=== PATIENT | female | born 2000 | race American Indian/Alaskan Native ===

== ENCOUNTER 2021-10-27 10:55 | Emergency (ER) | payer SELFPAY ==
[2021-10-27] MEDS ORDERED: LIDOCAINE-MPF (1%) 10 MG/1 ML VIAL 5 ML INFILTRATI ONE (12:12)
--- NOTE | 2021-10-27 12:21 | Emergency Department Report ---
ED Female HPI - General Chief complaint: Urogenital-Female Stated complaint: BARTHOLIN CYST Source: patient Mode of arrival: Ambulatory Limitations: No Limitations - History of Present Illness Initial comments: 21-year-old female presents to the ED complaining of right labia pain after having rough sex x3 days ago. She states that she was evaluated at [facility] times x 2 days ago and was given Flagyl gel for bacterial vaginosis. Patient states that she has a history of having Bartholin cyst in the past. States that she never had to have an incision and drained they normally will resolve . Patient states that she has unprotected sex. Denies any abd pain fever, chills or nausea or vomiting at present. Denies any abdominal pain at present. No acute distress noted no ill appearance no. She states taking Tylenol with mild relief. Onset/Timin -: days(s) Location: labia Severity scale (0 -10): 3 Worsens with: none Are you Now?: No Last Menstrual Period: 10/17/21 EDC: 07/24/22 Associated Symptoms: denies other symptoms - Related Data Sexually active: Yes Previous Rx's Medication Instructions Recorded Last Taken Type DOXYCYCLINE Hyclate [Vibramycin 100 mg PO Q12HR 7 Days #14 capsule 10/27/21 Unknown Rx CAP] Allergies Allergy/AdvReac Type Severity Reaction Status Date / Time No Known Allergies Allergy Unverified 10/27/21 11:21 ED Review of Systems ROS: Stated complaint: BARTHOLIN CYST Other details as noted in HPI Constitutional: denies: chills, fever Eyes: denies: eye pain, eye discharge, vision change ENT: denies: ear pain, throat pain Respiratory: denies: cough, shortness of breath, wheezing Cardiovascular: denies: chest pain, palpitations Endocrine: no symptoms reported Gastrointestinal: denies: abdominal pain, nausea, diarrhea Genitourinary: denies: urgency, dysuria, discharge Musculoskeletal: denies: back pain, joint swelling, arthralgia Skin: denies: rash, lesions Neurological: denies: headache, weakness, paresthesias Psychiatric: denies: anxiety, depression Hematological/Lymphatic: denies: easy bleeding, easy bruising ED Past Medical Hx - Past Medical History Previous Medical History?: Yes Additional medical history: BARTHOLIN CYST - Surgical History Past Surgical History?: Yes Additional Surgical History: UMBILICAL HERNIA REPAIR @ [facility]NG AGE - Medications Home Medications: Home Medications Medication Instructions Recorded Confirmed Last Taken Type DOXYCYCLINE Hyclate [Vibramycin 100 mg PO Q12HR 7 Days #14 capsule 10/27/21 Unknown Rx CAP] ED Physical Exam - General Limitations: No Limitations General appearance: alert, in no apparent distress - Head Head exam: Present: atraumatic, normocephalic - Eye Eye exam: Present: normal appearance - ENT ENT exam: Present: mucous membranes moist - Neck Neck exam: Present: normal inspection - Respiratory Respiratory exam: Present: normal lung sounds bilaterally. Absent: respiratory distress - Cardiovascular Cardiovascular Exam: Present: regular rate, normal rhythm. Absent: systolic murmur, diastolic murmur, rubs, gallop - GI/Abdominal GI/Abdominal exam: Present: soft, normal bowel sounds - External exam: Present: swelling (right labia ). Absent: lesions, lacerations - Extremities Exam Extremities exam: Present: normal inspection - Back Exam Back exam: Present: normal inspection - Neurological Exam Neurological exam: Present: alert, oriented X3 - Psychiatric Psychiatric exam: Present: normal affect, normal mood - Skin Skin exam: Present: warm, dry, intact, normal color. Absent: rash ED Course Vital Signs 10/27/21 11:23 Temperature 98.4 F Pulse Rate 77 Respiratory 16 Rate Blood Pressure 115/82 O2 Sat by Pulse 97 Oximetry ED Medical Decision Making - Medical Decision Making 21-year-old female presents to the ED complaining of right labia pain after having rough sex x3 days ago. She states that she was evaluated at [facility] times x 2 days ago and was given Flagyl gel for bacterial vaginosis. Patient states that she has a history of having Bartholin cyst in the past. States that she never had to have an incision and drained they normally will resolve . Patient states that she has unprotected sex. Denies any abd pain fever, chills or nausea or vomiting at present. Denies any abdominal pain at present. No acute distress noted no ill appearance no. She states taking Tylenol with mild relief. Examination right labia no fluctuant noted unable to drain. Explained to patient to Continue to apply warm compress. To restrain from having sexual intercourse. Follow-up with [facility]. Continue take Flagyl as previous prescribed. Will empirically treat patient for gonorrhea chlamydia. Rocephin 500 given in ED . Discussed plan of care and finding with patient patient verbalized understanding. Patient last menstrual cycle October 17. Critical care attestation.: If time is entered above; I have spent that time in minutes in the direct care o f this critically ill patient, excluding procedure time. ED Disposition Clinical Impression: Bartholin cyst Disposition: HOME / SELF CARE / HOMELESS Is pt being admited?: No Does the pt Need Aspirin: No Condition: Stable Instructions: Bartholin's Cyst Additional Instructions: Follow-up with [facility] Continue to take Flagyl has previous dry Restrain from having sexual intercourse Take medication as prescribed apply, warm compress to right labia area Prescriptions: DOXYCYCLINE Hyclate [Vibramycin CAP] 100 mg PO Q12HR 7 Days #14 capsule Referrals: GODWIN MORTON MD [Staff Physician] - 3-5 Days Time of Disposition: 12:35
[2021-10-27 13:14] VITALS: BP 131/78
--- NOTE | 2021-10-27 20:49 | Emergency Department Report ---
ED General Adult HPI - General Chief complaint: Urogenital-Female Stated complaint: BARTHOLIN CYST Source: patient Mode of arrival: Ambulatory Limitations: No Limitations - History of Present Illness Severity scale (0 -10): 0 - Related Data Previous Rx's Medication Instructions Recorded Last Taken Type DOXYCYCLINE Hyclate [Vibramycin 100 mg PO Q12HR 7 Days #14 capsule 10/27/21 Unknown Rx CAP] Allergies Allergy/AdvReac Type Severity Reaction Status Date / Time No Known Allergies Allergy Verified 10/27/21 13:06 ED Review of Systems ROS: Stated complaint: BARTHOLIN CYST Other details as noted in HPI Constitutional: denies: chills, fever Eyes: denies: eye pain, eye discharge, vision change ENT: denies: ear pain, throat pain Respiratory: denies: cough, shortness of breath, wheezing Cardiovascular: denies: chest pain, palpitations Endocrine: no symptoms reported Gastrointestinal: denies: abdominal pain, nausea, diarrhea Genitourinary: denies: urgency, dysuria, discharge Musculoskeletal: denies: back pain, joint swelling, arthralgia Skin: denies: rash, lesions Neurological: denies: headache, weakness, paresthesias Psychiatric: denies: anxiety, depression Hematological/Lymphatic: denies: easy bleeding, easy bruising ED Past Medical Hx - Past Medical History Previous Medical History?: Yes Additional medical history: BARTHOLIN CYST - Surgical History Past Surgical History?: Yes Additional Surgical History: UMBILICAL HERNIA REPAIR @ [facility] AGE - Medications Home Medications: Home Medications Medication Instructions Recorded Confirmed Last Taken Type DOXYCYCLINE Hyclate [Vibramycin 100 mg PO Q12HR 7 Days #14 capsule 10/27/21 Unknown Rx CAP] ED Physical Exam - General Limitations: No Limitations General appearance: alert, in no apparent distress - Head Head exam: Present: atraumatic, normocephalic - Eye Eye exam: Present: normal appearance - ENT ENT exam: Present: mucous membranes moist - Neck Neck exam: Present: normal inspection - Respiratory Respiratory exam: Present: normal lung sounds bilaterally. Absent: respiratory distress - Cardiovascular Cardiovascular Exam: Present: regular rate, normal rhythm. Absent: systolic murmur, diastolic murmur, rubs, gallop - GI/Abdominal GI/Abdominal exam: Present: soft, normal bowel sounds - Speculum exam: Present: vaginal bleeding - Extremities Exam Extremities exam: Present: normal inspection - Back Exam Back exam: Present: normal inspection - Neurological Exam Neurological exam: Present: alert, oriented X3 - Psychiatric Psychiatric exam: Present: normal affect, normal mood - Skin Skin exam: Present: warm, dry, intact, normal color. Absent: rash ED Course Vital Signs 10/27/21 10/27/21 11:23 13:05 Temperature 98.4 F 98.5 F Pulse Rate 77 74 Respiratory 16 16 Rate Blood Pressure 115/82 Blood Pressure 131/78 [Right] O2 Sat by Pulse 97 99 Oximetry Critical care attestation.: If time is entered above; I have spent that time in minutes in the direct care of this critically ill patient, excluding procedure time. ED Disposition Disposition: HOME / SELF CARE / HOMELESS Condition: Stable Instructions: Bartholin's Cyst Additional Instructions: Follow-up with [facility] Continue to take Flagyl has previous dry Restrain from having sexual intercourse Take medication as prescribed apply, warm compress to right labia area Prescriptions: DOXYCYCLINE Hyclate [Vibramycin CAP] 100 mg PO Q12HR 7 Days #14 capsule Referrals: GODWIN MORTON MD [Staff Physician] - 3-5 Days
== END 2021-10-27 13:10 | disposition home or self-care (01) ==
LOC: ED 10:55
DX: N75.0 Cyst of Bartholin's gland (principal)
CPT/HCPCS: 96372; 99282; J0696; J3490